=== PATIENT | female | born 1980 | race Caucasian/White ===

== ENCOUNTER 2021-04-04 12:17 | Emergency (ER) | payer MEDICAID ==
[~2021-04-04] VITALS: Ht 157.5 cm; Wt 100.0 kg
[2021-04-04 12:36] VITALS: BP 128/83
== END 2021-04-04 13:47 | disposition home or self-care (01) ==
LOC: ER 12:17
DX: T16.1XXA Foreign body in right ear, initial encounter (principal); M79.5 Residual foreign body in soft tissue; X58.XXXA Exposure to other specified factors, initial encounter; Y93.9 Activity, unspecified; Y92.9 Unspecified place or not applicable
CPT/HCPCS: 69200; 99284

== ENCOUNTER 2021-07-23 11:37 | Emergency (ER) | payer MEDICAID ==
[~2021-07-23] VITALS: Ht 157.5 cm; Wt 102.0 kg
[2021-07-23 14:42] VITALS: BP 136/59
== END 2021-07-23 14:43 | disposition home or self-care (01) ==
LOC: ER 11:37
DX: M54.9 Dorsalgia, unspecified (principal)
CPT/HCPCS: 99283

== ENCOUNTER 2025-01-02 21:41 | Emergency (ER) | payer SELFPAY ==
[~2025-01-02] VITALS: Ht 160 cm; Wt 103.3 kg
[2025-01-02 21:53] VITALS: TEMP 36.8; O2SAT 98
[2025-01-03] MEDS ORDERED: METH-653 MT (00:53)
[2025-01-03] MEDS ORDERED: IBUP-2029 MT (00:53)
[2025-01-03] MEDS ORDERED: PRED10TA MT (00:53)
[2025-01-03] MEDS: KETOROLAC 30MG/ML VIAL IM ONE (01:06)
[2025-01-03 01:27] VITALS: BP 113/67; PULSE 75; RESP 18; O2SAT 98
== END 2025-01-03 01:45 | disposition home or self-care (01) ==
LOC: ER 21:41
DX: M54.40 Lumbago with sciatica, unspecified side (principal); Z79.899 Other long term (current) drug therapy
CPT/HCPCS: 99283; 82962; 72100; 96372; J1885